=== PATIENT | female | born 1995 | race Caucasian/White ===

== ENCOUNTER → 2017-08-05 | Outpatient (CLI) | payer OTHER ==
[~2017-08-05] MED LIST: FAMO-119 PO; FEXO180T84 PO; FEXO60TA PO; HYDR-3062 PO; LEVO1TAB20 PO; LEVO500T2 PO; NAPR-243 PO; PRD20T PO; SULF-222 PO
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
== END ==
LOC: RAD 10:38
PROVIDERS: ATTEND Nurse Practitioner Family
DX: M53.3 Sacrococcygeal disorders, not elsewhere classified (principal)
CPT/HCPCS: 72220

== ENCOUNTER 2017-10-13 15:39 | Outpatient (RCR) | payer OTHER | END 2017-10-13 16:35 | disposition home or self-care (01) | PROVIDERS: ATTEND Nurse Practitioner Family | DX: M54.5 Low back pain (principal); M53.3 Sacrococcygeal disorders, not elsewhere classified ==

== ENCOUNTER 2022-06-11 04:04 | Emergency (ER) | payer BC ==
[~2022-06-11] VITALS: Ht 132.6 cm; Wt 68.0 kg
[~2022-06-11 04:04] MED LIST changes: +ACHD5005 PO; -HYDR-3062 PO
[2022-06-11 04:20] VITALS: BP 144/89
[2022-06-11] MEDS ORDERED: ALPRAZolam 0.25 MG (XANAX) TAB PO ONE (05:00)
--- NOTE | 2022-06-11 05:58 | ED Cardiac General ---
History of Present Illness General Chief Complaint: Cardiac/General Problems Stated Complaint: HEART PALPITATIONS Nursing Triage Note: Pt came by POV and is ambulatory to room 5 with complaints of rapid heart rate. Pt reports that she tried CBD infused chocolate tonight and since then her heart has been beating fast; and according to her apple watch her heart rate "got into the 140s". When this RN applied ER monitors, pts heart rate was noted in the 120s, and is 100% on room air. Source: patient Exam Limitations: no limitations History of Present Illness Date Seen by Provider: Jun 11, 2022 Allergies and Home Medications Allergies Coded Allergies: sulfamethoxazole (Verified Allergy, Severe, HIVES, 12/27/15) trimethoprim (Verified Allergy, Severe, HIVES, 12/27/15) Penicillins (Verified Allergy, Unknown, 12/27/15) Sulfa (Sulfonamide Antibiotics) (Verified Allergy, Unknown, HIVES, 12/31/15) adhesive tape (Verified Allergy, Unknown, HIVES, 12/31/15) cannabidiol (CBD) extract (Verified Adverse Reaction, Intermediate, Tachycardia, 06/11/22) Tachycardia to oral CBD and Delta 9 THC Patient Home Medication List Hydrocodone Bit/Acetaminophen (HYDROcodone/APAP 5 MG/325 MG TAB) 1 Each Tablet, 1-2 EACH PO Q4H Prescribed by: PAIGE LONDON on 10/16/16 1108 Levofloxacin (Levaquin) 500 Mg Tablet, 500 MG PO DAILY Prescribed by: PAIGE LONDON on 10/16/16 1108 Levonorgestrel-Ethin Estradiol (Lutera-28 Tablet) 1 Each Tablet, 1 TAB PO DAILY, (Reported) Entered as Reported by: ANNIE LION on 12/27/15 0820 Past Toducrh-Indiun-Flpijq Hx Patient Social History Tobacco Use?: No Smoking Status: Never a Smoker Smokeless Tobacco Frequency: Never a User Use of E-Cig and/or Vaping dev: No Use of E-Cig and/or Vaping Aaron: Never a User Substance use?: No Alcohol Use?: Yes Alcohol Frequency: Once in a while Pt feels they are or have been: No Immunizations Up To Date Tetanus Booster (TDap): Unknown PED Vaccines UTD: Yes Influenza Vaccine Up-to-Date: Yes; Up-to-Date Seasonal Allergies Seasonal Allergies: Yes Past Medical History Tonsillectomy Asthma Headaches /Migraines Reproductive Disorders: No Eczema Adverse Reaction/Blood Tranf: No Family Medical History No Pertinent Family Hx Physical Exam Vital Signs Vital Signs - First Documented 06/11/22 04:20 Temp 37.1 Pulse 128 Resp 18 B/P (MAP) 144/89 (107) Capillary Refill : Less Than 3 Seconds Height, Weight, BMI Height: 5'4.00" Weight: 152lbs. 0.0oz. [id number]; 38.00 BMI Method:Stated Progress/Results/Core Measures Results/Orders My Orders Orders - SHAHNAZ SNOWDEN MD Ekg Tracing (06/11/22 04:24) Alprazolam Tablet (Xanax Tablet) (06/11/22 05:00) Medications Given in ED Current Medications Medications Dose Ordered Sig/Lyndsay Route Start Time Stop Time Status Last Admin Dose Admin Alprazolam 0.25 mg ONCE ONCE PO 06/11/22 05:00 06/11/22 05:01 DC 06/11/22 05:19 0.25 MG Vital Signs/I&O 06/11/22 04:20 Temp 37.1 Pulse 128 Resp 18 B/P (MAP) 144/89 (107) Blood Pressure Mean: 107 Initial ECG Impression Date: Jun 11, 2022 Initial ECG Impression Time: 04:31 Initial ECG Rhythm: S.Tach Comment Sinus tachycardia with no ST elevation or depression. No abnormal intervals or axis deviation. Departure Impression Primary Impression: Sinus tachycardia Additional Impression: Adverse reaction to drug Qualified Codes: T50.905A - Adverse effect of unspecified drugs, medicaments and biological substances, initial encounter Disposition: HOME, SELF-CARE Condition: Improved Departure-Patient Inst. Decision time for Depature: 05:57 Referrals: NO,LOCAL PHYSICIAN (PCP/Family) Primary Care Physician Patient Instructions: Cardioversion (DC) Add. Discharge Instructions: Avoid use of any THC, CBD, or marijuana products in the future. Also avoid stimulants such as decongestants, excessive caffeine, diet pills, workout supplements, etc. that may accelerate your heart rate. At your next primary care follow-up appointment, discuss appropriateness of referral to a record maker for further evaluation. Return to care if you have worsening symptoms. All discharge instructions reviewed with patient and/or family. Voiced understanding. SHAHNAZ SNOWDEN MD Jun 11, 2022 05:58
== END 2022-06-11 06:13 | disposition home or self-care (01) ==
LOC: EDUNIT# 04:04 → ER 04:09
DX: R00.2 Palpitations (principal); T40.715A Adverse effect of cannabis, initial encounter
CPT/HCPCS: 93005